=== PATIENT | male | born 2000 | race Caucasian/White ===

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

== ENCOUNTER 2022-10-21 12:14 | Emergency (ER) | payer OTHER ==
[~2022-10-21] VITALS: Ht 175.3 cm; Wt 70.3 kg
[2022-10-21 12:27] VITALS: BP 163/97
[2022-10-21] MEDS ORDERED: AMOCLA875 PO (12:29)
== END 2022-10-21 12:29 | disposition home or self-care (01) ==
LOC: ER 12:14
DX: K04.7 Periapical abscess without sinus (principal)
CPT/HCPCS: 99282